=== PATIENT | male | born 1955 | race Caucasian/White ===

== ENCOUNTER → 2020-08-03 16:12 | Outpatient (CLI) | payer OTHER, SELFPAY ==
--- NOTE | ~2020-08-03 | MR_ITS ---
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 Sequences included full-field axial PD-weighted FS FSE and T1-weighted FSE, coronal of the pelvis with PD-weighted FS FSE, small field of view of the left hip with axial PD-weighted FS FSE, sagitta l PD-weighted FS FSE and coronal PD weighted FS FSE. Additional radial T1-weighted FGR oriented ortho gonal to the acetabular rim were obtained for evaluation of the labrum. COMPARISON: None FINDINGS: Bones/labrum/cartilage: Alignment is normal. No fracture, avascular necrosis or pathologic marrow replacing process. Mild os teoarthritis at the left hip with mild posterior predominant nonuniform joint space narrowing there i s minimal partial thickness cartilage loss with suggestion of some chondral surface irregularity but without degenerative subchondral changes at the anterosuperior aspect of the joint space. Amorphous i ncreased signal at the posterior and anterosuperior labrum consistent with degeneration without discr ete linear tear. Fluid: Symmetric physiologic amount of fluid within both hip joints. Soft tissues: Normal and symmetric muscle bulk and signal in the pelvis and visualized proximal thighs. The iliopso as, gluteal and proximal hamstring tendons are normal. , Sigmoid diverticulosis without adjacent infl ammatory change to suggest diverticulitis. Mild prostatomegaly measuring 4.5 x 3.5 cm. Limited evalua tion of visceral organs of the pelvis is otherwise unremarkable. No pathologically enlarged pelvic/i nguinal lymphadenopathy. IMPRESSION: 1. Mild left hip osteoarthritis with degeneration of the anterosuperior and posterior labrum. Reviewed, dictated and finalized at location A. IMPRESSION: 1. Mild left hip osteoarthritis with degeneration of the anterosuperior and pos terior labrum.
== END ==
PROVIDERS: PCP Emergency Medicine; Visit Provider Orthopaedic Surgery
DX: M16.12 Unilateral primary osteoarthritis, left hip (principal)
CPT/HCPCS: 73721

== ENCOUNTER 2024-05-04 09:31 | Emergency (ER) | payer OTHER, SELFPAY ==
--- NOTE | 2024-05-04 09:33 | ED.WOUNDLAC ---
HPI - Wound/Laceration General Chief Complaint: Wound/Laceration Stated Complaint: Stitches Removal Time Seen by Provider: 05/04/24 09:32 Source: patient Mode of arrival: ambulatory Limitations: no limitations History of Present Illness HPI narrative: Chin is a 68-year-old male patient presenting to the clinic today for a staple removal. He reports he had maureen placed in his head 7 days ago when he hit his head when he slipped on rocks while hiking in [place]. Is here to get the maureen removed. Has a V shaped healing laceration to the left side of his scalp. Denies any concerns. Related Data Home Medications Medication Instructions Recorded Confirmed aspirin 81 mg tablet,delayed 81 mg PO DAILY 12/17/19 05/04/24 release ([facility] Low Dose Aspirin) alogliptin 12.5 mg tablet 12.5 mg PO DAILY 05/20/20 05/04/24 pioglitazone 30 mg tablet 30 mg PO DAILY 05/20/20 05/04/24 Allergies Allergy/AdvReac Type Severity Reaction Status Date / Time lisinopril Allergy Mild Cough Verified 05/04/24 09:35 Penicillins Allergy Mild Unknown Verified 05/04/24 09:35 doxycycline Allergy Unknown Unknown Verified 05/04/24 09:35 CIPROFLOXACIN HCL Allergy Unknown Rash Uncoded 05/04/24 09:35 Review of Systems Review of Systems: Pertinent positives per HPI. Patient denies any fever, chills, rash, headache, visual changes, dizziness, cough, runny nose, sore throat, shortness of breath, chest pain, palpitations, nausea, vomiting, diarrhea, constipation, abdominal pain, or any urinary issues. [facility] Past Medical History Medical History Arthritis of left hip Deviated septum (~10/2006) Diabetes mellitus History of broken collarbone (~08/2011) HLD (hyperlipidemia) Hypertension Labral tear of hip, degenerative Left hip pain Low back pain Screening PSA (prostate specific antigen) Surgical History Surgical History History of appendectomy (~11/2010) History of back surgery (~02/2019) L3-L4 History of cholecystectomy (~2004) History of tonsillectomy (~1964) Family History Family History Father Hypertension, Onset Age: 67 Cerebrovascular accident, Onset Age: 67 Mother Arthritis Social History Social History Smoking status: Never smoker Alcohol intake: current Comments At the time of my signature, I reviewed and agree with the nursing past medical, surgical, social, and family history. There is no relevant family history pertinent to the patient complaint. Exam Narrative: General: Well-developed, well nourished, in no apparent distress Head: Normocephalic, atraumatic. Cardio: Regular rate and rhythm, s1 and s2 normal, no murmur appreciated. Resp: Clear to auscultation bilaterally, no rhonchi, rales, wheezing or rubs. Integumentary: [place], warm, and dry, intact without lesion, V- shaped healing laceration to the left scalp. 6 maureen removed from the left scalp Course Course Emergency Course: Portions of this record may have been created with voice recognition software. Level of Care: Express Care Visit Vital Signs Vital signs: Vital signs reviewed MDM - Wound/Laceration MDM Narrative Medical decision making narrative: At the time of visit patient is resting comfortably on the exam table. Patient appears to be nontoxic. Plan: Staple removal was performed in the clinic today. Wound healing well without signs of infection. Supportive measures were discussed with the patient and they voiced understanding discharge instructions and agrees to treatment plan. Return precautions reviewed Differential Diagnosis Differential diagnosis: Likely laceration and other (healing wound, staple removal) Discharge Plan Discharge Clinical Impression: Encounter for removal of st
[2024-05-04 09:40] VITALS: BP 134/70; PULSE 86; RESP 15; TEMP 36.7; O2SAT 98
== END 2024-05-04 09:48 | disposition home or self-care (01) ==
PROVIDERS: Emergency Provider Nurse Practitioner Family
DX: S01.01XD Laceration without foreign body of scalp, subsequent encounter (principal); W01.0XXD Fall on same level from slipping, tripping and stumbling without subsequent striking against object, subsequent encounter; Z79.82 Long term (current) use of aspirin; E11.9 Type 2 diabetes mellitus without complications; E78.5 Hyperlipidemia, unspecified; I10 Essential (primary) hypertension; M16.12 Unilateral primary osteoarthritis, left hip
CPT/HCPCS: 99211; G0463

== ENCOUNTER 2024-05-09 12:43 | Emergency (ER) | payer OTHER, SELFPAY ==
--- NOTE | 2024-05-09 12:59 | ED.WOUNDLAC ---
HPI - Wound/Laceration General Chief Complaint: Wound/Laceration Stated Complaint: STAPLE REMOVAL Time Seen by Provider: 05/09/24 13:19 Source: patient and RN notes reviewed Mode of arrival: ambulatory Limitations: no limitations History of Present Illness HPI narrative: 68-year-old male presents for staple removal. Reports he was here 6 days ago for staple removal. He had the sutures placed in his scalp and [place] after an injury. He reports he noticed that there was still staple in his wound. He reports he has been putting Neosporin on the area. Related Data Home Medications Medication Instructions Recorded Confirmed aspirin 81 mg tablet,delayed 81 mg PO DAILY 12/17/19 05/04/24 release ([facility] Low Dose Aspirin) alogliptin 12.5 mg tablet 12.5 mg PO DAILY 05/20/20 05/04/24 pioglitazone 30 mg tablet 30 mg PO DAILY 05/20/20 05/04/24 Allergies Allergy/AdvReac Type Severity Reaction Status Date / Time lisinopril Allergy Mild Cough Verified 05/04/24 09:35 Penicillins Allergy Mild Unknown Verified 05/04/24 09:35 doxycycline Allergy Unknown Unknown Verified 05/04/24 09:35 CIPROFLOXACIN HCL Allergy Unknown Rash Uncoded 05/04/24 09:35 Review of Systems Review of Systems: CONSTITUTIONAL: Denies malaise, chills, sweats, or fever. SKIN: Reports healing laceration on the scalp with an intact staple MUSCULOSKELETAL: Denies muscle skeletal pain NEUROLOGIC: Denies numbness, weakness All systems reviewed & are unremarkable except as noted in HPI and below PMFSH Past Medical History Medical History Arthritis of left hip Deviated septum (~10/2006) Diabetes mellitus History of broken collarbone (~08/2011) HLD (hyperlipidemia) Hypertension Labral tear of hip, degenerative Left hip pain Low back pain Screening PSA (prostate specific antigen) Surgical History Surgical History History of appendectomy (~11/2010) History of back surgery (~02/2019) L3-L4 History of cholecystectomy (~2004) History of tonsillectomy (~1963) Family History Family History Father Hypertension, Onset Age: 67 Cerebrovascular accident, Onset Age: 67 Mother Arthritis Social History Social History Smoking status: Never smoker Alcohol intake: current Comments At time of signature, agree with nursing past medical, surgical, social and family history. There is no relevant family history pertinent to the presenting complaint Exam Narrative: GENERAL: Well-appearing, well-nourished, and in no acute distress. HEAD: Normocephalic, atraumatic. EYES: PERRLA, conjunctivae clear, and EOMI. ENT: Mucous membranes moist. NECK: Supple. No lymphadenopathy CHEST: Clear to auscultation. No respiratory distress. HEART: Regular rate and rhythm. SKIN: Warm, dry. Well-approximated wound with a small amount of dried serous drainage noted to the left scalp, 1 intact staple noted NEURO: Alert and oriented x3. PSYCH: Normal mood and affect Course Course Emergency Course: Patient had maureen removed here 6 days ago, however [address] Patient is aware of, understands and agrees to treatment plan. Anticipatory guidance given. Patient agrees to follow-up as directed and is aware of reasons to seek care at the emergency department. Portions of this record may have been created with voice recognition software Level of Care: Express Care Visit Vital Signs Vital signs: Reviewed. MDM - Wound/Laceration MDM Narrative Medical decision making narrative: Verbal consent was obtained. Wound well approximated, no erythema, induration, or discharge noted. One staple completely removed in a sterile fashion. Patient tolerated procedure well, no complications. Patient advised to look for and return
[2024-05-09 13:06] VITALS: BP 122/62; PULSE 113; RESP 16; TEMP 36.8; O2SAT 100
== END 2024-05-09 13:31 | disposition home or self-care (01) ==
PROVIDERS: Emergency Provider Nurse Practitioner; PCP Family Medicine
DX: S01.01XD Laceration without foreign body of scalp, subsequent encounter (principal); X58.XXXD Exposure to other specified factors, subsequent encounter; M16.12 Unilateral primary osteoarthritis, left hip; E11.9 Type 2 diabetes mellitus without complications; E78.5 Hyperlipidemia, unspecified; I10 Essential (primary) hypertension; Z79.82 Long term (current) use of aspirin
CPT/HCPCS: 99199; 99211; G0463